=== PATIENT | female | born 1970 ===

== ENCOUNTER → 2024-06-27 | Outpatient (BNVA) | payer BC, SELFPAY | END | disposition home or self-care (01) | PROVIDERS: PCP Nurse Practitioner Family; Referring Provider Nurse Practitioner Family; Visit Provider Nurse Practitioner Family | DX: J01.90 Acute sinusitis, unspecified (principal) | CPT/HCPCS: 99213 ==

== ENCOUNTER → 2024-09-23 | Outpatient (BNVA) | payer BC, SELFPAY | END | disposition home or self-care (01) | PROVIDERS: PCP Family Medicine; Referring Provider Family Medicine; Visit Provider Nurse Practitioner Family | DX: N30.01 Acute cystitis with hematuria (principal) | CPT/HCPCS: 81001; 99214 ==

== ENCOUNTER → 2024-09-30 | Outpatient (BNVA) | payer BC, SELFPAY | END | disposition home or self-care (01) | PROVIDERS: PCP Family Medicine; Referring Provider Family Medicine; Visit Provider Nurse Practitioner Family | DX: E11.649 Type 2 diabetes mellitus with hypoglycemia without coma (principal) | CPT/HCPCS: 99212 ==

== ENCOUNTER → 2024-11-19 | Outpatient (BNVA) | payer BC, SELFPAY | END | disposition home or self-care (01) | PROVIDERS: PCP Nurse Practitioner Family; Referring Provider Nurse Practitioner Family; Visit Provider Nurse Practitioner Family | DX: L70.9 Acne, unspecified (principal); L81.1 Chloasma; H02.72 Madarosis of eyelid and periocular area; H02.723 Madarosis of right eye, unspecified eyelid and periocular area; Z23 Encounter for immunization | CPT/HCPCS: 90471; 90686; 99213 ==

== ENCOUNTER 2024-12-26 08:59 | Inpatient (IN) | payer BC, SELFPAY ==
[2024-12-26] VITALS (7 sets, daily range): BP systolic 118–165; BP diastolic 75–97; PULSE 84–112; RESP 16–19; TEMP 36.2–36.6; O2SAT 93–100; BMI 27.8
--- NOTE | 2024-12-26 | XR_ITS ---
Examinations: MRI Brain without intravenous contrast. MRA brain without intravenous contrast. MRA carotids without intravenous contrast 3-D vascular reconstructions Date and time of exam: 12/26/2022 at 3:29 p.m. Indication: Right-sided headaches with numbness in the fingers. Assess for cavernous sinus thrombosis. COMPARISON: Same day CTA head and neck and noncontrast head CT Technique: Multiple axial and sagittal images of the brain have been obtained MRA brain carotid images without contrast obtained, including 3-D postprocessing, vascular maximum intensity projection images Findings: The brain demonstrates normal morphology and signal intensity. No sellar or suprasellar mass. No supratentorial or infratentorial mass. The optic chiasm and infundibular stalk are unremarkable. No abnormalities detected in the cavernous sinuses. Prepontine and interpeduncular cisterns are not enlarged. No localized enlargement of the medulla or karina. Fourth ventricle and cerebellar tonsils are in normal in position. No evidence for intra-axial or extra-axial hemorrhage.. Fourth ventricle is midline. 7th and 8th nerve complexes exhibits symmetry. Globes are symmetrical with no retro-orbital mass. Increased white matter signal: Negative, normal signal Diffusion-weighted images demonstrate no restricted diffusion to indicate recent ischemic infarction, infection or other pathology Mass-effect upon the ventricular system is not identified. MRA carotid images normal, no stenosis, dissection or occlusion of the bilateral carotid and vertebral arteries. No apparent abnormality in the cavernous sinuses. MRA brain images normal, no evidence for significant stenosis, branch occlusion aneurysm or high flow vascular malformation. Impression: Negative brain MRI for acute intracranial abnormality or mass lesion. No apparent abnormality of the cavernous sinuses. Normal MRA head and neck.
--- NOTE | 2024-12-26 | XR_ITS ---
EXAMINATION: MR venogram brain without contrast TECHNIQUE: Multiple venographic brain MRI images without intravenous contrast, including 3D reconstructions postprocessing angiographic images Date and time: December 26, 2024, 1539 hours INDICATIONS: Sudden onset right-sided headaches and numbness in the right fingers today FINDINGS: Excellent visualization of the sagittal sinus straight sinus internal cerebral vein and transverse sinuses No findings of thrombosis in the visualized sinuses This is a relatively low detailed study with no diagnostic visualization of the paraclinoid venous sinus regions IMPRESSION: Visualized sinuses appear intact Consider brain MRI follow-up post intravenous contrast
--- NOTE | 2024-12-26 09:04 | XR_ITS ---
Examination: CTA carotids with intravenous contrast CTA brain, head with intravenous contrast. 2-D sagittal, coronal reconstructions. 3-D reconstructions. Exam date and time: 12/26/2024 at 9:17 a.m. INDICATION: Sudden onset of blurred vision and generalized headache COMPARISON: Same day noncontrast head CT. CTDI: vol (mGy) 23.2 DLP: (mGycm) 474 Technique: Multiple CTA axial brain, head carotid images post intravenous contrast injection 75 cc, [id number]. 2-D sagittal, coronal reconstructions. 3-D reconstructions, 3-D post processing including vascular maximum intensity projection images. Low dose protocols were performed. One or more of the following dose reduction techniques were used; automated exposure control, adjustment of the mA and/or KV according to patient size, use of iterative reconstruction technique. Findings: CT angiography of the head: The bilateral ICAs, ACAs, MCAs, regulatory scientist, distal vertebral arteries and basilar artery are well opacified without apparent significant stenosis, occlusion or aneurysm formation. The major dural venous sinuses are patent and well-opacified. Levy-white differentiation is maintained. No evidence of intracranial hemorrhage. No intracranial mass or evidence of mass-effect. No midline shift or herniation. No extra-axial collections. The ventricles are normal in size and morphology. No evidence of hydrocephalus. CT angiography of the neck: There is a separate origin of the left subclavian artery, left common carotid artery, and brachiocephalic artery from the arch. The common carotid arteries and cervical internal carotid arteries are normal in course and caliber. Both vertebral arteries are patent without evidence of flow-limiting stenosis or dissection. No evidence of acute arterial injury or contrast extravasation. No acute fracture or subluxation is demonstrated in the cervical spine. Right paracentral disc osteophyte complex at C5-6 results in mild central canal stenosis. No thyromegaly. Heterogeneous appearance of the thyroid, most notably at the prominent Zuckerkandl tubercle. No cervical lymphadenopathy or other masses. The visualized lung apices are clear. IMPRESSION: Negative CTA head and neck for hemodynamically significant stenosis, dissection, occlusion, aneurysm, vascular malformation or tumor. No acute intracranial abnormality.
--- NOTE | 2024-12-26 09:04 | XR_ITS ---
Examination: CT brain head without contrast. 2-D sagittal coronal reconstructions Date and time of exam: 12/26/2024 at 9:09 a.m. INDICATION: Focal neuro deficit, stroke suspected COMPARISON: Noncontrast CT brain 09/03/2007 CTDI: vol (mGy): 49.5 DLP: (mGycm): 976 Technique: Multiple CT axial sections of the brain have been obtained, 5 mm slice thickness. Contrast has not been administered. 2-D sagittal, coronal reconstructions have been obtained Low dose protocols were performed. One or more of the following dose reduction techniques were used; automated exposure control, adjustment of the mA and/or KV according to patient size, use of iterative reconstruction technique. Findings: The brain appears normal and stable compared to prior CT. No evidence for acute large vessel transcortical ischemic infarction. No intra-axial or extra-axial hemorrhage. No abnormal ventricular enlargement. No mass effect or midline shift Basal cisterns are not remarkable. Fourth ventricle is midline. Cranial vault intact. 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 Impression: Negative noncontrast head CT for acute intracranial abnormality. The brain appears normal and stable compared to prior exam. Pertinent results were discussed with Dr. Garcias via telephone on 12/26/2024 9:16 AM. 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
[2024-12-26 09:12] LABS: Basophils # (Auto) 0.1 Thou/mm3 (0.0-0.2); Basophils % (Auto) 1 % (0-2.5); Eosinophils # (Auto) 0.1 Thou/mm3 (0.0-0.5); Eosinophils % (Auto) 1 % (0-10); Hematocrit 41.3 % (36.0-46.0); Hemoglobin 14.6 g/dL (12.0-16.0); Immature Granulocytes Auto 0.02 Thou/mm3 (0.00-0.00); Lymphocytes # (Auto) 2.9 Thou/mm3 (1.0-4.8); Lymphocytes % (Auto) 52 % (10-50); Mean Corpuscular HGB Conc 35.4 g/dl (31.0-37.0); Mean Corpuscular Hemoglobin 30.2 pg (25.0-35.0); Mean Corpuscular Volume 86 fL (80-100); Monocytes # (Auto) 0.6 Thou/mm3 (0.0-0.8); Monocytes % (Auto) 10 % (0-12); Neutrophils # (Auto) 2.0 Thou/mm3 (1.8-7.7); Neutrophils % (Auto) 36 % (37-80); Nucleated Red Blood Cell # 0.00 Thou/mm3 (0.00-0.00); Nucleated Red Blood Cell % 0 /100 WBC (0); Platelet Count 317 Thou/mm3 (140-440); RDW Standard Deviation 34.8 fL (36.4-46.3); Red Blood Count 4.83 Miln/mm3 (4.00-5.20); White Blood Count 5.5 Thou/mm3 (3.6-11.0)
[2024-12-26 09:28] LABS: INR 1.0 (0.9-1.3); Partial Thromboplastin Time 23.9 Seconds (22.0-36.0); Prothrombin Time 10.3 Seconds (9.0-12.2)
[2024-12-26 09:29] LABS: B-Type Natriuretic Peptide < 20 pg/mL (0-100)
--- NOTE | 2024-12-26 09:32 | ESCONSULT_ITS ---
Tele Neuro Consultation Consultation Date 12/26/24 Laboratory-Coagulation Panel PT 10.3 Seconds (9.0-12.2) 12/26/24 09:06 INR 1.0 (0.9-1.3) 12/26/24 09:06 APTT 23.9 Seconds (22.0-36.0) 12/26/24 09:06 Consultation Narrative [facility] Patient Name:???LUCILLE MILLER Date of :???1970 Identification Number:??? Date of Service:???12/26/2024 09:02:57 Diagnosis:?H53.8 - Blurred Vision Impression: ?This is a 54 yo F w a PMHX of DM, HLD, who presents to the ED with the acute onset of DICK, blurred vision, bilateral hand numbness. She was last known to be at baseline at 8.30AM. On arrival to the ED his/her symptoms remain persistent, although improved. BP was found to be 165 systolic. This has never happened to her before. ?Physical exam is unrevealing ?Labs pending ?Imaging pending official read ?Will need to consider complicated migraine vs. CVST vs. IIH vs aseptic meningitis. ?Less likely a posterior circulation stroke. ?1.) MRI brain and orbits with and without con ?2.) MRV brain r/o CVST ?3.) If the above is unrevealing, and the symptoms persist, would treat with migraine cocktail and look for symptoms resolution: ? ?--> 10mg IV Decadron ?--> 10mg IV Reglan ?--> 15mg IV Toradol ? ?- continue 5mg IV Toradol q6hr prn DICK ?- IVF ? ?--> If DICK, does NOT break, give 1g bolus of IV Magnesium (1000mg) ?--> If DICK does NOT break give 500mg IV caffeine ?--> If DICK does NOT break, give 1g of IV Depakote (IV piggyback over 20 min) ? ?4.) If the above is unrevealing and migraine cocktail does not lead to resolution of symptoms, would consider a large-volume diagnostic and therapeutic LP Other recommendations: ? Stroke/Telemetry Floor ? Neuro Checks q6h ? Bedside Swallow Eval ? DVT Prophylaxis ? IV Fluids, Normal Saline ? Head of Bed 30 Degrees ? Euglycemia and Avoid Hyperthermia (PRN Acetaminophen) Advanced Imaging:Advanced Imaging Deferred because: Non-disabling symptoms as verified by the patient; no cortical signs so not consistent with LVO Metrics: Last Known Well: 12/26/2024 08:30:00 Dispatch Time: 12/26/2024 09:02:57 Arrival Time: 12/26/2024 08:59:00 Initial Response Time: 12/26/2024 09:09:55Symptoms: DICK, blurred vision, bilateral hand numbness. Initial patient interaction: 12/26/2024 09:14:59 NIHSS Assessment Completed: 12/26/2024 09:22:51Patient is not a candidate for Thrombolytic. Thrombolytic Medical Decision: 12/26/2024 09:22:52Patient was not deemed candidate for Thrombolytic because of following reasons: Stroke severity too mild (non-disabling) . CT Head: I personally reviewed all the CT images that were available to me and it showed: pending rads read Primary Provider Notified of Diagnostic Impression and Management Plan on: 12/26/2024 09:31:35 History of Present Illness:Patient is a 54 year old Female. Patient was brought by EMS for symptoms of DICK, blurred vision, bilateral hand numbness. This is a 54 yo F w a PMHX of DM, HLD, who presents to the ED with the acute onset of DICK, blurred vision, bilateral hand numbness. She was last known to be at baseline at XX. On arrival to the ED his/her symptoms remain persistent, although improved. BP was found to be 165 systolic. This has never happened to her before. She was taken for CTH and further evaluation. Decision on whether or not to give pharmacological thrombolysis was made based on indications, contraindications, and patient's disability status and preference. ? Medications: Anticoagulant use:??Unknown Antiplatelet use:?Unknown Reviewed EMR for current medications Allergies:? NKDA Social History: Smoking: No Alcohol Use: No Drug Use: No Family History: There is no family history of premature cerebrovascular disease pertinent to this consultation ROS : 14 Points Review of Systems was performed and was negative except mentioned in HPI. Past Surgical History: There Is No Surgical History Contributory To Today?s Visit ? Examination: BP(165/97),?Pulse(97), 1A: Level of Consciousness - Alert; keenly responsive?+ 0 1B: Ask Month and Age - Both Questions Right?+ 0 1C: Blink Eyes & Squeeze Hands - Performs Both Tasks?+ 0 2: Test Horizontal Extraocular Movements - Normal?+ 0 3: Test Visual Jackson - No Visual Loss?+ 0 4: Test Facial Palsy (Use Grimace if Obtunded) - Normal symmetry?+ 0 5A: Test Left Arm Motor Drift - No Drift for 10 Seconds?+ 0 5B: Test Right Arm Motor Drift - No Drift for 10 Seconds?+ 0 6A: Test Left Leg Motor Drift - No Drift for 5 Seconds?+ 0 6B: Test Right Leg Motor Drift - No Drift for 5 Seconds?+ 0 7: Test Limb Ataxia (FNF/Heel-Real) - No Ataxia?+ 0 8: Test Sensation - Normal; No sensory loss?+ 0 9: Test Language/Aphasia - Normal; No aphasia?+ 0 10: Test Dysarthria - Normal?+ 0 11: Test Extinction/Inattention - No abnormality?+ 0 NIHSS Score:?0 Pre-Morbid Modified [place] Scale: 0 Points = No symptoms at all Spoke with :?attending unable to be reached. front worker forwarding to center medical specialist and second time calling there was a hang up This consult was conducted in real time using interactive audio and video technology. Patient was informed of the technology being used for this visit and agreed to proceed. Patient located in hospital and provider located at home/office setting. Patient is being evaluated for possible acute neurologic impairment and high probability of imminent or life-threatening deterioration. I spent total of 35 minutes providing care to this patient, including time for face to face visit via telemedicine, review of medical records, imaging studies and discussion of findings with providers, the patient and/or family. Dr Dawson Sandoval [facility] For Inpatient follow-up with [facility] physician please call [facility] at . As we are not an outpatient service for any post hospital discharge needs please contact the hospital for assistance. If you have any questions for the [facility] physicians or need to reconsult for clinical or diagnostic changes please contact us via [facility] at . Non-radiologist review of imaging performed to assist with emergent clinical decision-making. Remote physician workstations do not possess the same resolution, calibration, or diagnostic capabilities as hospital-based radiology reading stations, and formal radiologist read is necessary. Signature :?Dawson Sandoval ?
[2024-12-26 09:35] LABS: Alanine Aminotransferase 27 U/L (10-49); Albumin, Serum 4.9 gm/dL (3.5-5.0); Albumin/Globulin Ratio 2.0 (1.2-2.2); Alcohol, Blood Medical < 3.0 mg/dL (0-10.0); Alkaline Phosphatase 83 U/L (46-116); Anion Gap 8 (7-16); Aspartate Amino Transferase 18 U/L (0-34); BUN/Creatinine Ratio 13 Ratio (12-20); Bilirubin,Total 0.5 mg/dL (0.3-1.2); Blood Urea Nitrogen 10 mg/dL (9-23); Calcium 10.1 mg/dL (8.3-10.6); Calcium (Corrected) 10.1 mg/dL (8.5-10.1); Carbon Dioxide 27.2 mMol/L (20.0-31.0); Chloride 106 mMol/L (98-107); Creatinine (Component) 0.8 mg/dL (0.6-1.3); Estimated Creatinine Clearance 69.4 mL/min (>60); Globulin 2.4 gm/dL (2.3-3.5); Glucose 163 mg/dL (74-106); Magnesium 1.8 mg/dL (1.6-2.6); Osmolality,Calculated 284 (275-295); Potassium 4.5 mMol/L (3.4-5.1); Sodium 141 mMol/L (136-145); Total Protein 7.3 gm/dL (5.7-8.2); Troponin I < 0.002 ng/mL (0.0-0.045); eGFR > 60 See Note
[2024-12-26] MEDS: SODIUM CHLORIDE 0.9% 1000 ML 1,000 ML 100 ML IV (09:42)
[2024-12-26] MEDS: ACETAMINOPHEN 325 MG TABLET 650 MG PO (09:55)
[2024-12-26 10:22] LABS: Collection Type, Urine Catheter
[2024-12-26 10:30] LABS: Bilirubin,Urine Negative (Negative); Blood,Urine Negative (Negative); Clarity,Urine Clear (Clear/Hazy); Color,Urine Lt-Yellow (Lt Yel-Yel); Glucose, Urine Negative (Negative); Ketones,Urine Negative (Negative); Leukocyte Esterase,Urine Negative (Negative); Nitrite,Urine Negative (Negative); PH,Urine 7.5 (5.0-7.0); Protein,Urine Negative (Neg - Trace); RBC,Urine 6 /hpf (0-3); Specific Gravity,Urine 1.049 (1.001-1.035); Squamous Epithelial Cell,Urine 4 /hpf (0-5); Urobilinogen,Urine Negative mg/dL (0.0-1.0); WBC,Urine 2 /hpf (0-5)
[2024-12-26 10:44] LABS: Amphetamine/Methamp Scrn,U Negative (Negative); Barbiturate Screen,Urine Negative (Negative); Benzodiazepines Screen,Urine Negative (Negative); Benzoylecgonine Screen, Ur Negative (Negative); Fentanyl Screen,Urine Negative (Negative); Opiate Screen,Urine Negative (Negative); THC Screen,Urine Negative (Negative)
[2024-12-26] MEDS: KETOROLAC INJ 30 MG/ML VIAL 15 MG IVP (12:28)
[2024-12-26] MEDS: DEXAMETHASONE SOD PHOS INJ 10 MG/ML VIAL IV (12:28)
[2024-12-26] MEDS: METOCLOPRAMIDE INJ 5 MG/ML VIAL 2 ML 10 MG IVP (12:29)
--- NOTE | 2024-12-26 13:01 | PD.EDNEURO ---
Neuro Symptoms Deficit-RME/HPI General Chief Complaint: Neuro Symptoms/Deficit Stated Complaint: SUDDEN LOSE VISION OF VISION AT 0830 Time Seen by Provider: 12/26/24 09:04 Arrival date/time: 12/26/24 08:59 Limitations: no limitations RME / HPI RME / HPI Narrative: 54 year old female with history of migraines, diabetes, hyperlipidemia presents to the ED BIBA from home for evaluation of headache, blurred vision, and hand numbness today that began suddenly while working at 08:30 AM. No unilateral weakness or loss of sensation. Patient states she woke at her usual state of health this morning. No other associated symptoms or complaints reported. Denies fevers, chills. Related Data Home Medications ?Medication ?Instructions ?Recorded ?Confirmed cetirizine 10 mg tablet (All Day 10 mg PO QDAY PRN 09/30/24 11/19/24 Allergy (cetirizine)) cholecalciferol (vitamin D3) 125 125 mcg PO QDAY 09/30/24 11/19/24 mcg (5,000 unit) capsule dulaglutide 3 mg/0.5 mL 3 mg subcut QWEEK 09/30/24 11/19/24 subcutaneous [facility] fenofibrate micronized 200 mg 200 mg PO QDAY 09/30/24 11/19/24 capsule levothyroxine 100 mcg capsule 100 mcg PO QDAY 09/30/24 11/19/24 metformin 1,000 mg tablet 1,000 mg PO BID 09/30/24 11/19/24 montelukast 10 mg tablet 10 mg PO QDAY 09/30/24 11/19/24 omega-3 acid ethyl esters 1 gram 1 cap PO BID 09/30/24 11/19/24 capsule (Lovaza) simvastatin 40 mg tablet 40 mg PO QHS 09/30/24 11/19/24 Previous Rx's ?Medication ?Instructions ?Recorded blood-glucose sensor (Clinverse G7 #1 ea 09/30/24 Sensor device) bimatoprost 0.03 % drops with 1 applic topical QDAY 30 days #5 mL 11/19/24 applicator, eyelash base (Latisse) hydroquinone 4 % topical cream 1 applic topical BID 30 days #28.4 11/19/24 grams tretinoin 0.05 % topical cream 1 applic topical QHS 30 days #45 10/01/25 (Retin-A) grams Allergies Allergy/AdvReac Type Severity Reaction Status Date / Time cephalexin (From Keflex) Allergy Severe Hives Verified 12/26/24 09:05 Sulfa (Sulfonamide Allergy Severe HIVES Verified 12/26/24 09:05 Antibiotics) Review of Systems Review of Systems Systems Reviewed: All systems reviewed, normal except as documented Past Medical History Past Medical History NEUROLOGIC: Positive Neurological Disorders and Migraine CARDIAC: Positive Cardiac Disorders and Hypercholesterolemia GASTROINTESTINAL: Positive Gastrointestinal Disorders (CHRONIC DIARRHEA AND STOMACH PAIN) REPRODUCTIVE: Positive Previous Pregnancies (2) and Uterine Prolapse ENT: Positive History of ENT Problems and Cataracts (Left eye) ENDOCRINE: Positive Endocrine Disorders, Diabetes Mellitus Type 2 and Hyperthyroidism OTHER HISTORY: Positive Autoimmune Disease, Shingles and Chicken Pox Family History FAMILY HISTORY: Positive Family Cardiac Disorders (HTN, migraine, STROKE, DC, HLD) and Family Endocrine Disorders (DMT2) Surgical History SURGICAL: Positive Eye Surgery (RT CATARACTS), Knee Sx, Hysterectomy and Tubal Ligation Social History SMOKING STATUS: Never smoker SECOND HAND EXPOSURE: No SUBSTANCE USE: does not use ALCOHOL LAST INTAKE: Unknown ED Exam General Limitations: Present no limitations General appearance: Present alert and in no apparent distress Head Head exam: Present atraumatic, normocephalic and normal inspection Eye Eye exam: Present normal appearance, PERRL, EOMI and other (visual singh to confrontation were difficulty to assess, patient states part of visual field on both sides were obscured ) ENT ENT exam: Present normal exam, normal oropharynx and mucous membranes moist Neck Neck exam: Present normal inspection, full ROM and trachea midline Chest Chest inspection: Present normal inspection and symmetric chest wall rise Respiratory Respiratory exam: Present normal lung sounds bilaterally Cardiovascular Cardiovascular exam: Present regular rate, normal rhythm and normal heart sounds Abdominal Exam Abdominal exam: Present soft and normal bowel sounds Extremities Exam Extremities exam: Present full ROM and other (Subjective finger tip numbness ) Back Exam Back exam: Present normal inspection and full ROM Neurological Exam Neurological exam: Present alert, oriented X3 and CN II-XII intact Psychiatric Psychiatric exam: Present normal affect and normal mood Skin Skin exam: Present warm, dry, intact and normal color Course Quality Measures Suspected type of Stroke: Non Acute Last known well (date): 12/26/24 Last known well (time): 08:30 Tenecteplase given: Reason(s) TPA not given: Stroke severity too mild (non-disabling) not given stroke Orders Category Date Time Status Bedside Blood Glucose NOW Care 12/26/24 09:04 Active COVID-19 Screening Questionnaire NOW Care 12/26/24 12:14 Active 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 NOW Care 12/26/24 09:04 Active Continuous Pulse Oximetry NOW Care 12/26/24 09:04 Completed Decision to Admit X1 Care 12/26/24 12:13 Completed Insert IV NOW Care 12/26/24 09:04 Active NIH Stroke Scale now Care 12/26/24 09:04 Active NPO NOW Care 12/26/24 09:04 Active Neuro Check Q4HR Care 12/26/24 09:04 Active Nurse Swallow Screen x1 Care 12/26/24 09:04 Active Consult to Neurology / Tele-Neurology Routine Cons 12/26/24 09:[address] angio stroke protocol Stat Exams 12/26/24 09:[address] stroke protocol Stat Exams 12/26/24 09:04 Completed Alcohol, Blood Medical Stat Lab 12/26/24 09:06 Completed B-Type Natriuretic Peptide Stat Lab 12/26/24 09:06 Completed CBC Stat Lab 12/26/24 09:06 Completed Comprehensive Metabolic Panel Stat Lab 12/26/24 09:06 Completed Drug Screen,Urine Stat Lab 12/26/24 10:18 Completed Magnesium Stat Lab 12/26/24 09:06 Completed Partial Thromboplastin Time Stat Lab 12/26/24 09:06 Completed Prothrombin Time with INR Stat Lab 12/26/24 09:06 Completed Troponin I Stat Lab 12/26/24 09:06 Completed Urinalysis Stat Lab 12/26/24 10:18 Completed Urine Culture Stat Lab 12/26/24 10:09 Received Acetaminophen Tab [Tylenol Tab] Med 12/26/24 09:47 Discontinued 650 mg PO X1 ONE Dexamethasone Inj [Decadron Inj] Med 12/26/24 12:15 Discontinued 10 mg IV X1 ONE Ketorolac Inj [Toradol Inj] Med 12/26/24 12:07 Discontinued 15 mg IVP X1 ONE Metoclopramide Inj [Reglan Inj] Med 12/26/24 12:07 Discontinued 10 mg IVP X1 ONE Sodium Chloride 0.9% 1000 ml [Ns] 1,000 ml Med 12/26/24 09:15 Active IV Q10H Vital Signs Vital signs: Vital Signs Temperature 97.8 F 12/26/24 09:33 Pulse Rate 97 12/26/24 09:33 Respiratory Rate 18 12/26/24 09:33 Blood Pressure 165/97 H 12/26/24 09:33 Pulse Oximetry (%) 100 12/26/24 09:33 Oxygen Delivery Method Room Air 12/26/24 09:33 Pulse ox is 100% on room air which is adequate. Neuro Symptoms / Deficit MDM Narrative MDM Narrative:: Brigida Rosen am scribing for and in the presence of Dr. Garcias. Patient data External records reviewed:: [facility] previous records and EMS form Clinical information provided by:: patient and EMS Social determinants that could affect healthcare access:: none Patient has the following chronic illnesses:: migraines, diabetes, hyperlipidemia How is presenting disease/condition affected by chronic disease/condition?: exacerbated by Evaluation data The following diagnostics were reviewed and interpreted by me:: lab results and radiology exam(s) Lab and/or radiology exams considered but not ordered:: None Interpretation Summary: Ordering Physician: Praful Garcias MD Date of Service: 12/26/24 Procedure(s): CT stroke protocol Accession Number(s): [id number] cc: Praful Garcias MD; Julian Theodore DO~ Examination: CT brain head without contrast. 2-D sagittal coronal reconstructions Date and time of exam: 12/26/2024 at 9:09 a.m. INDICATION: Focal neuro deficit, stroke suspected COMPARISON: Noncontrast CT brain 09/03/2007 CTDI: vol (mGy): 49.5 DLP: (mGycm): 976 Technique: Multiple CT axial sections of the brain have been obtained, 5 mm slice thickness. Contrast has not been administered. 2-D sagittal, coronal reconstructions have been obtained Low dose protocols were performed. One or more of the following dose reduction techniques were used; automated exposure control, adjustment of the mA and/or KV according to patient size, use of iterative reconstruction technique. Findings: The brain appears normal and stable compared to prior CT. No evidence for acute large vessel transcortical ischemic infarction. No intra-axial or extra-axial hemorrhage. No abnormal ventricular enlargement. No mass effect or midline shift Basal cisterns are not remarkable. Fourth ventricle is midline. Cranial vault intact. 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 Impression: Negative noncontrast head CT for acute intracranial abnormality. The brain appears normal and stable compared to prior exam. Pertinent results were discussed with Dr. Garcias via telephone on 12/26/2024 9:16 AM. 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 Dictated By: Julian Theodore DO Signed By: <Electronically signed by Julian Theodore DO in OV> 12/26/24 0919 Ordering Physician: Praful Garcias MD Date of Service: 12/26/24 Procedure(s): CT angio stroke protocol Accession Number(s): [id number] cc: Praful Garcias MD; Jaime Bolton MD; Julian Theodore DO~ Examination: CTA carotids with intravenous contrast CTA brain, head with intravenous contrast. 2-D sagittal, coronal reconstructions. 3-D reconstructions. Exam date and time: 12/26/2024 at 9:17 a.m. INDICATION: Sudden onset of blurred vision and generalized headache COMPARISON: Same day noncontrast head CT. CTDI: vol (mGy) 23.2 DLP: (mGycm) 474 Technique: Multiple CTA axial brain, head carotid images post intravenous contrast injection 75 cc, [id number]. 2-D sagittal, coronal reconstructions. 3-D reconstructions, 3-D post processing including vascular maximum intensity projection images. Low dose protocols were performed. One or more of the following dose reduction techniques were used; automated exposure control, adjustment of the mA and/or KV according to patient size, use of iterative reconstruction technique. Findings: CT angiography of the head: The bilateral ICAs, ACAs, MCAs, staffing specialist, distal vertebral arteries and basilar artery are well opacified without apparent significant stenosis, occlusion or aneurysm formation. The major dural venous sinuses are patent and well-opacified. Levy-white differentiation is maintained. No evidence of intracranial hemorrhage. No intracranial mass or evidence of mass-effect. No midline shift or herniation. No extra-axial collections. The ventricles are normal in size and morphology. No evidence of hydrocephalus. CT angiography of the neck: There is a separate origin of the left subclavian artery, left common carotid artery, and brachiocephalic artery from the arch. The common carotid arteries and cervical internal carotid arteries are normal in course and caliber. Both vertebral arteries are patent without evidence of flow-limiting stenosis or dissection. No evidence of acute arterial injury or contrast extravasation. No acute fracture or subluxation is demonstrated in the cervical spine. Right paracentral disc osteophyte complex at C5-6 results in mild central canal stenosis. No thyromegaly. Heterogeneous appearance of the thyroid, most notably at the prominent Zuckerkandl tubercle. No cervical lymphadenopathy or other masses. The visualized lung apices are clear. IMPRESSION: Negative CTA head and neck for hemodynamically significant stenosis, dissection, occlusion, aneurysm, vascular malformation or tumor. No acute intracranial abnormality. Dictated By: Julian Theodore DO Signed By: <Electronically signed by Julian Theodore DO in OV> 12/26/24 1007 Medications / Prescriptions Medications or Prescriptions considered but not ordered:: None Medication administrations:: Medication Administration History Al Hydrox/Mg Hydrox/Simethicone (Mg Hyd/Al Hyd/Earl (Maalox Reg) Susp 30 Ml Udc) 15 ml PO QID PRN PRN Reason: GI prophylaxis Stop: 01/25/25 15:11 Aspirin (Aspirin Ec 81 Mg Tabec) 81 mg PO QDAY JODI Stop: 01/25/25 14:59 Last Admin: 12/26/24 15:10 Dose: 81 mg Documented By: LIZZY Atorvastatin Calcium (Atorvastatin Calcium 20 Mg Tablet) 40 mg PO HS JODI Stop: 01/25/25 20:59 Dextrose (Dextrose 50%-Water Inj 50 Ml Syringe) 25 ml IV Q15MIN PRN PRN Reason: BG 50-70 responsive npo pt Stop: 01/25/25 15:05 Dextrose (Dextrose 50%-Water Inj 50 Ml Syringe) 50 ml IV Q15MIN PRN PRN Reason: BG <50 OR BG <70 & pt unresponsive Stop: 01/25/25 15:05 Glucagon (Glucagon Inj 1 Mg Vial) 1 mg IM Q15MIN PRN PRN Reason: BG <70, and no IV access Sodium Chloride (Ns) 1,000 mls @ 100 mls/hr IV Q10H JODI Stop: 01/25/25 09:14 Last Admin: 12/26/24 09:42 Dose: 100 mls/hr Documented By: EF Insulin Human Lispro (Insulin Lispro (Admelog) 1 Unit/0.01 Ml Unit) 0 unit SC ACHS JODI; Protocol Stop: 01/25/25 16:59 Labetalol HCl (Labetalol Inj 5 Mg/Ml Vial 20 Ml) 20 mg IVP Q2H PRN PRN Reason: Hypertensive Emergency Stop: 01/25/25 14:58 Ondansetron HCl (Ondansetron Inj 2 Mg/Ml Inj 2 Ml) 4 mg IVP Q6HR PRN; Protocol PRN Reason: NAUSEA OR VOMITING Stop: 01/25/25 14:58 Discontinued Medications Acetaminophen (Acetaminophen 325 Mg Tablet) 650 mg PO X1 ONE Stop: 12/26/24 09:48 Last Admin: 12/26/24 09:55 Dose: 650 mg Documented By: EF Dexamethasone Sodium Phosphate (Dexamethasone Sod Phos Inj 10 Mg/Ml Vial) 10 mg IV X1 ONE Stop: 12/26/24 12:16 Last Admin: 12/26/24 12:28 Dose: 10 mg Documented By: VG Ketorolac Tromethamine (Ketorolac Inj 30 Mg/Ml Vial) 15 mg IVP X1 ONE Stop: 12/26/24 12:08 Last Admin: 12/26/24 12:28 Dose: 15 mg Documented By: VG Ketorolac Tromethamine (Ketorolac Inj 30 Mg/Ml Vial) 5 mg IVP Q6HR PRN PRN Reason: HEADACHE Stop: 12/31/24 15:17 Metoclopramide HCl (Metoclopramide Inj 5 Mg/Ml Vial 2 Ml) 10 mg IVP X1 ONE; Protocol Stop: 12/26/24 12:08 Last Admin: 12/26/24 12:29 Dose: 10 mg Documented By: VG See above Consultations Consultation(s) initiated? (list below): Yes Consultation #1 (Physician, Specialty, Details): [id number] I spoke with teleneurologist Dr. Sandoval, states patient is not a TNK candidate. Symptoms are less likely a posterior circulation stroke and consider complicated migraine vs. CVST vs. IIH vs aseptic meningitis. Consultation #2 (Physician, Specialty, Details): I spoke with hospitalist team for admission. Diagnosis Neuro Differential Diagnosis: subarachnoid hemorrhage, cerebrovascular accident, transient cerebral ischemia and other (Migraine headaches ) Most likely diagnosis given after review of the tests above:: Headache with aura Visual changes Paresthesia Admission Indicated Admission indicated?: indicated Admission Request Was there a request for admission?: Yes Admission Attestation Admission request attestation: Discussed case with [] from Hospitalist service regarding admission. Discussed patients ED course, exam findings, labs, and radiology results. The Hospitalist [agrees,declines] to accept the patient for admission. Disposition Plan Disposition Plan: Admit Discharge Plan Plan Patient Disposition: Admit Acute Care w/in Hospital Problem List Clinical Impression: Headache, Visual changes, Paresthesia
--- NOTE | 2024-12-26 13:55 | ESHP_ITS ---
<Statement entered by Nader Lynne MD - 12/26/24 17:05> Patient seen and examined at bedside. I discussed and supervised with the human resource internship physician who took care of this patient. I personally saw and examined the patient. I agree with most of the assessment and plan. Plan of care discussed with attending Dr. Law. Nader Lynne MD PGY-2 Documentation for date of: 12/26/24 HPI History of Present Illness History of present illness: History of Present Illness: Nohemy Heller is 54 yr old Female, with PMH of T2DM and HLD, presented to the ED with sudden onset of right sided headache and numbness of the right fingers. Earlier this morning, while at work, she developed a sudden, progressively worsening, severe headache. 30 minutes prior, she experienced transient visual changes, noting that her vision mounika out with black stripes, though she could still perceive the outlines of objects. She also reported pain in the right eyeball and around the right lacrimal duct region. Additionally, she experienced numbness in her right fingers, but retained full movement and strength in the affected hand. No weakness, sensory changes, or abnormalities were noted in other parts of her body. The patient recalled having a more severe episode of headache several years ago, during which she felt she might , though she does not remember the exact diagnosis or cause. She typically experiences intermittent headaches relieved by ibuprofen or acetaminophen, however, these medications did not provide relief on this occasion. The current headache resolved following administration of ketorolac, dexamethasone, acetaminophen, and metoclopramide at the ED. Patient will be admitted for further evaluation and management of her headache. ED course: Vitals: Temperature 97.8 F, PR97, RR 18, BP 165/97, 100% O2 saturation on room air. Labs: WBC 5.5, potassium 4.5, HCO3 27.2, glucose 163, troponin <0.002, BNP<20 UA: Clear Yellow urine, Urine nitrite negative, Urine leukocytes Esterase negative, Urine RBC:6, Urine Bacteria: none Head CT w/o contrast: Negative hemorrhage Head/Neck CTA (12/26/2024): Negative stenosis, dissection, occlusion, aneurysm, vascular malformation or tumor. No acute intracranial abnormality. In ED, patient received Metoclopramide 10mg IV x1, Dexamethasone 10mg IV x1, Ketorolac 15mg IV x1, Acetaminophen 650mg PO x1, IV bolus NS 1L x1 Medical history: As stated above Surgical history: Right knee surgery with screws, hysterectomy, tubal ligation Allergies: Sulfa allergy causing whole body rash, Keflex causing skin infection Medications: Pending official med rec Family history: HLD, Heart illnesses in uncle, aunt and brother Social history: Denies smoking cigarettes, drinking alcohol or using other illicit drugs Review of Systems Review of Systems Narrative Review of Systems: All 12 systems assessed and the patient denies unless otherwise stated in HPI Exam Vital Signs Temp Pulse Resp BP Pulse Ox O2 Del Method 97.8 F 89 18 140/92 H 98 Room Air 12/26/24 13:19 12/26/24 13:19 12/26/24 13:19 12/26/24 13:19 12/26/24 13:19 12/26/24 13:19 Narrative Exam General: No acute distress, well nourished, AAO x3 Eye: PERRL, EOMI, normal conjunctiva, no scleral icterus, Photophoia. HENT: Normocephalic, atraumatic, hearing intact to conversation at normal volume, moist oral mucosa Neck: Supple, non-tender, no JVD, no lymphadenopathy Lungs: Non-labored respirations, symmetric chest rise, Clear to auscultate bilaterally, No wheezing, rhonchi, crackles Heart: Peripheral pulses intact bilaterally, Regular Rate and Rhythm. Abdomen: Soft, non-tender, non-distended, no palpable masses Musculoskeletal: Normal range of motion and strength, No cyanosis or edema, No visible joint swelling Skin: Skin is warm, dry, no rashes or lesions. Psychiatric: Cooperative, appropriate mood and affect, Awake and alert, not agitated Neuro: Cranial nerves II-XII grossly intact. Strength 5/5 throughout. Sensations intact to light touch. Results: Labs 12/26/24 09:06 12/26/24 09:06 Labs: Short CBC 12/26/24 Range/Units 09:06 WBC 5.5 (3.6-11.0) Thou/mm3 Hgb 14.6 (12.0-16.0) g/dL Hct 41.3 (36.0-46.0) % Plt Count 317 (140-440) Thou/mm3 BMP 12/26/24 09:06 Sodium 141 Potassium 4.5 Chloride 106 Carbon Dioxide 27.2 BUN 10 Creatinine 0.8 Glucose 163 H Calcium 10.1 Cardiac Enzymes 12/26/24 Range/Units 09:06 Troponin I < 0.002 (0.0-0.045) ng/mL Liver Function 12/26/24 Range/Units 09:06 Total Bilirubin 0.5 (0.3-1.2) mg/dL AST 18 (0-34) U/L ALT 27 (10-49) U/L Alkaline Phosphatase 83 (46-116) U/L Albumin 4.9 (3.5-5.0) gm/dL Urine 12/26/24 Range/Units 10:18 Urine Color Lt-Yellow (Lt Yel-Yel) Urine Clarity Clear (Clear/Hazy) Urine pH 7.5 H (5.0-7.0) Ur Specific [place] 1.049 H (1.001-1.035) Urine Protein Negative (Neg - Trace) Urine Glucose (UA) Negative (Negative) Quality Measures Quality Measures VTE prophylaxis Medications Home Medications and Allergies Home Medications ?Medication ?Instructions ?Recorded ?Confirmed ?Type cetirizine 10 mg tablet (All Day 10 mg PO QDAY PRN all ergy symptoms 09/30/24 12/26/24 History Allergy (cetirizine)) cholecalciferol (vitamin D3) 125 125 mcg PO QDAY 09/3012/26/24 History mcg (5,000 unit) capsule dulaglutide 3 mg/0.5 mL 4.5 mg subcut QWEEK 09/30/24 12/26/24 History subcutaneous pen injector (Trulicity) fenofibrate micronized 200 mg 200 mg PO QDAY 09/30/24 12/26/24 History capsule levothyroxine 100 mcg capsule 100 mcg PO QDAY 09/30/24 12/26/24 History metformin 1,000 mg tablet 1,000 mg PO BID 09/30/2409/12 History montelukast 10 mg tablet 10 mg PO QDAY 09/30/2412/26 History omega-3 acid ethyl esters 1 gram 1 cap PO BID 09/30/24 12/26/24 History capsule (Lovaza) simvastatin 40 mg tablet 40 mg PO DAILY 09/30/2409/12 History ascorbic acid (vitamin C) 1,000 mg 1,000 mg PO QDAY 12/26/24 History tablet (C-1000) estradiol 0.025 mg/24 hr weekly 0.025 mg topical .week ly 12/26/24 12/26/24 History transdermal patch stzaekyb-wyk-sxen-FA-Ca carb-vit K 1 tab PO HS 5 12/26/24 History 18 mg iron-400 mcg-500 mg tablet Allergies Allergy/AdvReac Type Severity Reaction Status Date / Time cephalexin (From Keflex) Allergy Severe Hives Verified 12/26/24 09:05 Sulfa (Sulfonamide Allergy Severe HIVES Verified 12/26/24 09:05 Antibiotics) Visit Medications Sodium Chloride (Ns) 1,000 mls @ 100 mls/hr IV Q10H JODI Stop: 01/25/25 09:14 Last Admin: 12/26/24 09:42 Dose: 100 mls/hr Discontinued Medications Acetaminophen (Acetaminophen 325 Mg Tablet) 650 mg PO X1 ONE Stop: 12/26/24 09:48 Last Admin: 12/26/24 09:55 Dose: 650 mg Dexamethasone Sodium Phosphate (Dexamethasone Sod Phos Inj 10 Mg/Ml Vial) 10 mg IV X1 ONE Stop: 12/26/24 12:16 Last Admin: 12/26/24 12:28 Dose: 10 mg Ketorolac Tromethamine (Ketorolac Inj 30 Mg/Ml Vial) 15 mg IVP X1 ONE Stop: 12/26/24 12:08 Last Admin: 12/26/24 12:28 Dose: 15 mg Metoclopramide HCl (Metoclopramide Inj 5 Mg/Ml Vial 2 Ml) 10 mg IVP X1 ONE; Protocol Stop: 12/26/24 12:08 Last Admin: 12/26/24 12:29 Dose: 10 mg Assessment & Plan Plan Nohemy Heller is 54 yr old Female, with PMH of T2DM and HLD, presented to the ED with sudden onset of right sided headache and numbness of the right fingers. Patient will be admitted for further evaluation and management of her headache. #CVA vs Complex Migraine -Ddx:. Cavernous Venous Thrombosis, Idiopathic Intracrainal HTN, Menginit -Patient's headache resolved after receiving Metoclopramide 10mg IV x1, Dexamethasone 10mg IV x1, Ketorolac 15mg IV x1, Acetaminophen 650mg PO x1 at the ED -Troponin <0.002, BNP<20 -Head CT w/o contrast (12/26/2024): Negative hemorrhage -Head/Neck CTA (12/26/2024): Negative stenosis, dissection, occlusion, aneurysm, vascular malformation or tumor. No acute intracranial abnormality. Plan: -ASA 81mg daily -Atorvastatin 40mg PO daily -Neuro Check q6hr -Head of bed 30 degrees -Aspiration precautions -Labetalol 10 mg IV q2h prn if BP>220/105 -Zofran 4mg IV q6hr prn for Nausea or Vomiting. -Brain MRI with MRA w/o contrast pending -Brain MRV w/o contrast pending -ECHO with BUBBLE study pending -Bedside swallow eval -TSH, A1c, Lipid panel pending -Consulted physical therapy, and speech. -Neurology consulted, Dr. Cohen, thank you for recommendation #Cluster headache -Patient's headache resolved after receiving Metoclopramide 10mg IV x1, Dexamethasone 10mg IV x1, Ketorolac 15mg IV x1, Acetaminophen 650mg PO x1 at the ED -Will continue to monitor Plan: -Acetaminophen 325 mg po q4hr prn for headache #Type 2 Diabetes -HbA1c: HbA1c: 6.3 on 06/30/2022. 9.8 on 01/22/2020 Plan: -Sliding scale insulin -Follow-up on morning A1c -Med rec pending #Hx of HLD -Atorvastatin 40mg PO daily Disposition: Tele Neuro Diet: Low Carb consistent Diet GI prophylaxis:Maalox DVT prophylaxis: SCD Code:FULL Assessment and plan discussed with my attending physician Dr. Law and Dr. Maged Wall (PGY-1) - Internal medicine resident Attending Provider Attestation/Addendum I or my resident physicians have discussed care with the ED physician and I have made the decision to admit. I have discussed and was present for the essential components of the history, physical examination, diagnosis, and treatment plan with the resident. I agree with the patient's care as documented by the resident and amended herein by me. Marky Law DO. Although this document has been carefully reviewed, there may still be some phonetic and other typographical errors. These errors are purely grammatical due to imperfections in the software program and should not be construed in any way to compromise the substance of the patient's medical care during this visit. Patient seen and evaluated in the ED. In short, 54-year-old female with significant past medical history of hypothyroidism, hyperlipidemia, type 2 diabetes and recently broken tooth, presented to the ED with complaints of acute onset right-sided headache which was more focused behind her right eye, associated bilateral finger numbness and vision loss which occurred at approximately 0830 this morning. She did experience as transient visual changes prior to the event and also noted that she normally has floaters in her eye however this was more pronounced in a dark field which was transient throughout her vision in her right eye. She did not endorse any motor weakness or any other neurological symptoms in any other part of her body. She took Tylenol which did not help. Upon arrival to the ED, she stated that the pain around her eye did improve and her vision has improved and normalized prior to receiving the migraine cocktail which did improve the pain. In the ED, she did receive ketorolac, dexamethasone and Reglan. Her symptoms were nearly resolved other vital signs were stable, labs were largely unremarkable with exception of her triglycerides which were 322, LDL was 75, total cholesterol 175, HDL 36. UA was negative. U tox negative. 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 Brain MRI and MRA was negative for any acute intracranial pathology, mass or lesions. A venogram was also performed per neurology recommendations, results pending. At this time patient will be admitted to acute telemetry under observation for acute stroke versus complicated migraine. Other differentials include cavernous venous sinus thrombosis, possible idiopathic intracranial hypertension or meningitis however those are much lower on the differential considering her symptoms nearly resolved after the migraine cocktail which is what I am leaning towards at this time. Her last A1c per chart was 6.3 in 2022, repeat pending, TSH also pending. We will have teleneurology round on the patient tomorrow if they are available, likely discharge tomorrow on 12/27 pending continued improvement.
[2024-12-26] MEDS: ASPIRIN EC 81 MG TABEC PO (15:10)
[2024-12-26] MEDS: ENOXAPARIN SOD INJ 40 MG/0.4 ML SYRINGE SC (16:58)
[2024-12-26 17:03] LABS: Cardiac Risk Estimate 4.9 RATIO (3.7-5.6); Cholesterol 175 mg/dL (132-200); HDL Cholesterol 36 mg/dL (40-60); LDL Cholesterol,Calculated 75 mg/dL (0-130); Triglycerides 322 mg/dL (30-150)
[2024-12-26] MEDS: INSULIN LISPRO (AdmeLOG) 1 UNIT/0.01 ML UNIT SC ×2 (17:38→20:44)
[2024-12-26] MEDS: ATORVASTATIN CALCIUM 20 MG TABLET 40 MG PO (20:44)
[2024-12-27] VITALS (8 sets, daily range): BP systolic 115–143; BP diastolic 74–90; PULSE 75–97; RESP 15–17; TEMP 36.3–37; O2SAT 92–98
[2024-12-27 06:47] LABS: Basophils # (Auto) 0.0 Thou/mm3 (0.0-0.2); Basophils % (Auto) 0 % (0-2.5); Eosinophils # (Auto) 0.0 Thou/mm3 (0.0-0.5); Eosinophils % (Auto) 0 % (0-10); Hematocrit 35.9 % (36.0-46.0); Hemoglobin 13.1 g/dL (12.0-16.0); Immature Granulocytes Auto 0.05 Thou/mm3 (0.00-0.00); Lymphocytes # (Auto) 2.7 Thou/mm3 (1.0-4.8); Lymphocytes % (Auto) 26 % (10-50); Mean Corpuscular HGB Conc 36.5 g/dl (31.0-37.0); Mean Corpuscular Hemoglobin 30.8 pg (25.0-35.0); Mean Corpuscular Volume 84 fL (80-100); Monocytes # (Auto) 0.7 Thou/mm3 (0.0-0.8); Monocytes % (Auto) 7 % (0-12); Neutrophils # (Auto) 7.0 Thou/mm3 (1.8-7.7); Neutrophils % (Auto) 66 % (37-80); Nucleated Red Blood Cell # 0.00 Thou/mm3 (0.00-0.00); Nucleated Red Blood Cell % 0 /100 WBC (0); Platelet Count 305 Thou/mm3 (140-440); RDW Standard Deviation 33.8 fL (36.4-46.3); Red Blood Count 4.26 Miln/mm3 (4.00-5.20); White Blood Count 10.6 Thou/mm3 (3.6-11.0)
[2024-12-27 07:22] LABS: Alanine Aminotransferase 23 U/L (10-49); Albumin, Serum 4.4 gm/dL (3.5-5.0); Albumin/Globulin Ratio 2.4 (1.2-2.2); Alkaline Phosphatase 87 U/L (46-116); Anion Gap 10 (7-16); Aspartate Amino Transferase 18 U/L (0-34); BUN/Creatinine Ratio 14 Ratio (12-20); Bilirubin,Total 0.3 mg/dL (0.3-1.2); Blood Urea Nitrogen 11 mg/dL (9-23); Calcium 9.5 mg/dL (8.3-10.6); Calcium (Corrected) 9.5 mg/dL (8.5-10.1); Carbon Dioxide 24.1 mMol/L (20.0-31.0); Chloride 107 mMol/L (98-107); Creatinine (Component) 0.8 mg/dL (0.6-1.3); Estimated Creatinine Clearance 69.7 mL/min (>60); Globulin 1.8 gm/dL (2.3-3.5); Glucose 177 mg/dL (74-106); Magnesium 1.8 mg/dL (1.6-2.6); Osmolality,Calculated 284 (275-295); Phosphorous 3.4 mg/dL (2.4-5.1); Potassium 4.5 mMol/L (3.4-5.1); Sodium 141 mMol/L (136-145); Thyroid Stimulating Hormone 0.03 uIU/mL (0.55-4.78); Total Protein 6.2 gm/dL (5.7-8.2); eGFR > 60 See Note
[2024-12-27 07:34] LABS: Glucose Estimated Average 169 mg/dL (80-131); Hemoglobin A1C 7.5 % Hgb (4.8-6.0)
[2024-12-27 08:30] LABS: Free T3 2.3 pg/mL (2.3-4.2); Free T4 (Free Thyroxine) 1.81 ng/dL (0.89-1.76)
--- NOTE | 2024-12-27 08:41 | PD.RESPRO ---
Documentation for date of: 12/27/24 Exam Vital Signs Temp Pulse Resp BP Pulse Ox O2 Del Method 97.3 F 92 16 115/74 92 L Room Air 12/27/24 04:00 12/27/24 04:00 12/27/24 04:00 12/27/24 04:00 12/27/24 04:00 12/27/24 04:00 Objective Labs 12/27/24 06:22 12/27/24 06:22 Labs: Laboratory Results - last 24 hr 12/26/24 12/26/24 12/26/24 09:06 10:18 16:20 WBC 5.5 RBC 4.83 Hgb 14.6 Hct 41.3 MCV 86 MCH 30.2 MCHC 35.4 RDW Std Deviation 34.8 L Plt Count 317 Neut % (Auto) 36 L Lymph % (Auto) 52 H [place] % (Auto) 10 Eos % (Auto) 1 Baso % (Auto) 1 Neut # (Auto) 2.0 Lymph # (Auto) 2.9 [place] # (Auto) 0.6 Eos # (Auto) 0.1 Baso # (Auto) 0.1 Immature Gran # (Auto) 0.02 H Absolute Nucleated RBC 0.00 Immature Gran % 0 Nucleated RBC % 0 PT 10.3 INR 1.0 APTT 23.9 Sodium 141 Potassium 4.5 Chloride 106 Carbon Dioxide 27.2 Anion Gap 8 BUN 10 Creatinine 0.8 Estim Creat Clear Calc 69.4 eGFR > 60 BUN/Creatinine Ratio [address] Glu mg/dL Hemoglobin A1c Calculated Osmolality 284 Calcium 10.1 Corrected Calcium 10.1 Phosphorus Magnesium 1.8 Total Bilirubin 0.5 AST 18 ALT 27 Alkaline Phosphatase 83 Troponin I < 0.002 B-Natriuretic Peptide < 20 Total Protein 7.3 Albumin 4.9 Globulin 2.4 Albumin/Globulin Ratio 2.0 Triglycerides 322 H Cholesterol 175 LDL Cholesterol, Calc 75 HDL Cholesterol 36 L Cholesterol/HDL Ratio 4.9 TSH Free T4 Free T3 pg/dL Ur Collection Type Catheter Urine Color Lt-Yellow Urine Clarity Clear Urine pH 7.5 H Ur Specific [place] 1.049 H Urine Protein Negative Urine Glucose (UA) Negative Urine Ketones Negative Urine Blood Negative Urine Nitrite Negative Urine Bilirubin Negative Urine Urobilinogen (Auto) Negative Ur Leukocyte Esterase Negative Urine RBC 6 H Urine WBC 2 Ur Squamous Epith Cells 4 Urine Bacteria None Urine Opiates Screen Negative Urine Fentanyl Screen Negative Ur Barbiturates Screen Negative U Amphetamin/Meth Scrn Negative U Benzodiazepines Scrn Negative U Cocaine Metab Screen Negative U Marijuana (THC) Screen Negative Ethyl Alcohol < 3.0 12/27/24 06:22 WBC 10.6 D RBC 4.26 Hgb 13.1 Hct 35.9 L MCV 84 MCH 30.8 MCHC 36.5 RDW Std Deviation 33.8 L Plt Count 305 Neut % (Auto) 66 Lymph % (Auto) 26 [place] % (Auto) 7 Eos % (Auto) 0 Baso % (Auto) 0 Neut # (Auto) 7.0 Lymph # (Auto) 2.7 [place] # (Auto) 0.7 Eos # (Auto) 0.0 Baso # (Auto) 0.0 Immature Gran # (Auto) 0.05 H Absolute Nucleated RBC 0.00 Immature Gran % 1 H Nucleated RBC % 0 PT INR APTT Sodium 141 Potassium 4.5 Chloride 107 Carbon Dioxide 24.1 Anion Gap 10 BUN 11 Creatinine 0.8 Estim Creat Clear Calc 69.7 eGFR > 60 BUN/Creatinine Ratio 14 [address]ucose [address] Glu mg/dL 169 H Hemoglobin A1c 7.5 H Calculated Osmolality 284 Calcium 9.5 Corrected Calcium 9.5 Phosphorus 3.4 Magnesium 1.8 Total Bilirubin 0.3 AST 18 ALT 23 Alkaline Phosphatase 87 Troponin I B-Natriuretic Peptide Total Protein 6.2 Albumin 4.4 D Globulin 1.8 L Albumin/Globulin Ratio 2.4 H Triglycerides Cholesterol LDL Cholesterol, Calc HDL Cholesterol Cholesterol/HDL Ratio TSH 0.03 L* Free T4 1.81 H Free T3 pg/dL 2.3 Ur Collection Type Urine Color Urine Clarity Urine pH Ur Specific [place] Urine Protein Urine Glucose (UA) Urine Ketones Urine Blood Urine Nitrite Urine Bilirubin Urine Urobilinogen (Auto) Ur Leukocyte Esterase Urine RBC Urine WBC Ur Squamous Epith Cells Urine Bacteria Urine Opiates Screen Urine Fentanyl Screen Ur Barbiturates Screen U Amphetamin/Meth Scrn U Benzodiazepines Scrn U Cocaine Metab Screen U Marijuana (THC) Screen Ethyl Alcohol Quality Measures Quality Measures stroke Suspected type of Stroke: Non Acute Last known well (date): 12/26/24 Last known well (time): 08:30 Tenecteplase given: Reason(s) Tenecteplase not given: Stroke severity too mild (non-disabling) not given Assessment & Plan Assessment Current Active Medications: Generic Name Dose Route Start Last Admin Trade Name Freq PRN Reason Stop Dose Admin Acetaminophen 325 mg 12/26/24 15:20 Acetaminophen 325 Mg Tablet PO 01/25/25 15:19 Q4HR PRN HEADACHE Al Hydrox/Mg Hydrox/Simethicone 15 ml 12/26/24 15:12 Mg Hyd/Al Hyd/Earl (Maalox Reg) Susp 30 Ml Udc PO 01/25/25 15:11 QID PRN GI prophylaxis Aspirin 81 mg 12/26/24 15:00 12/26/24 15:10 Aspirin Ec 81 Mg Tabec PO 01/25/25 14:59 81 mg QDAY JODI Administration Atorvastatin Calcium 40 mg 12/26/24 21:00 12/26/24 20:44 Atorvastatin Calcium 20 Mg Tablet PO 01/25/25 20:59 40 mg HS JODI Administration Dextrose 25 ml 12/26/24 15:06 Dextrose 50%-Water Inj 50 Ml Syringe IV 01/25/25 15:05 Q15MIN PRN BG 50-70 responsive npo pt Dextrose 50 ml 12/26/24 15:06 Dextrose 50%-Water Inj 50 Ml Syringe IV 01/25/25 15:05 Q15MIN PRN BG <50 OR BG <70 & pt unresponsive Enoxaparin Sodium 40 mg 12/26/24 16:00 12/26/24 16:58 Enoxaparin Sod Inj 40 Mg/0.4 Ml Syringe SC 01/09/25 15:59 40 mg QDAY JODI Administration Glucagon 1 mg 12/26/24 15:06 Glucagon Inj 1 Mg Vial IM Q15MIN PRN BG <70, and no IV access Sodium Chloride 1,000 mls @ 100 mls/hr 12/26/24 09:15 12/27/24 06:00 Ns IV 01/25/25 09:14 Not Given Q10H JODI Insulin Human Lispro 0 unit 12/26/24 17:00 12/27/24 07:40 Insulin Lispro (Admelog) 1 Unit/0.01 Ml Unit SC 01/25/25 16:59 Not Given ACHS [facility] Protocol Ketorolac Tromethamine 15 mg 12/26/24 15:53 Ketorolac Inj 30 Mg/Ml Vial IVP 12/31/24 15:52 Q6HR PRN HEADACHE Ondansetron HCl 4 mg 12/26/24 14:59 Ondansetron Inj 2 Mg/Ml Inj 2 Ml IVP 01/25/25 14:58 Q6HR PRN NAUSEA OR VOMITING Protocol
[2024-12-27] MEDS: ASPIRIN EC 81 MG TABEC PO (08:46)
[2024-12-27] MEDS: ENOXAPARIN SOD INJ 40 MG/0.4 ML SYRINGE SC (08:46)
[2024-12-27] MEDS: ACETAMINOPHEN 325 MG TABLET PO (08:50)
--- NOTE | 2024-12-27 10:58 | PC.PT ---
12/27/2024 PT eval performed - no add'l PT recommended
--- NOTE | 2024-12-27 11:33 | PC.SS ---
53YO Female, reason for visit: MIGRAINE, CVA R/O Naturopathic Physician met patient at bedside to complete initial assessment. Role and purpose of today's contact was explained. Patient confirmed her demographic information. Patient stated her spouse Joshua Rivas [phone] is her medical decisionmaker. Patient stated she is independent with ADL completion and ambulates with a cane at all times. PHARMACY: [facility]. PCP: Jaime Bolton. Patient requested to return home when medically clear. NEXT OF KIN: Spouse Joshua Rivas DISCHARGE PLAN: Home, spouse to transport.
--- NOTE | 2024-12-27 16:27 | PD.TNEUROPRO ---
Tele Neuro Progress Note Progress Note Date 12/27/24 [facility] TeleNeurology Consult Services Routine Consult Follow-Up Patient Name:???LUCILLE MILLER Date of :???1970 Identification Number:??? Date of Service:???12/27/2024 15:43:03 Diagnosis?H53.8 - Blurred Vision ?G44.59 - Other complicated headache syndrome Impression 12/26/24: This is a 54 yo F w a PMHX of DM, HLD, who presents to the ED with the acute onset of DICK, blurred vision, bilateral hand numbness. She was last known to be at baseline at 8.30AM. On arrival to the ED his/her symptoms remain persistent, although improved. BP was found to be 165 systolic. This has never happened to her before. 12/27/24: Most likely migrainous headache- visual aura and paresthesias preceding headache - she does have h/o complicated migraine with facial droop in the past, 1-2 times a year - h/o what sounds like a thunderclap headache without focal features many years ago - she was just started on an estrogen patch a month ago which can precipitate migraine in susceptible individuals recommend to d/c estrogen patch aspirin 81mg daily magnesium glycinate 400mg po BID (OTC formulation) magnesium L-threonate 1200mg po qhs (OTC formulation/magtein) screen/treat for OLGA upon discharge consider 30 day holter upon discharge follow up with her primary doctor regarding estrogen supplementation- can consider a local cream if needed or combine it with progresterone for more protection however in a patient with h/o complex headaches estrogen seems to increase risk of stroke d/w patient in detail, signing off- please call with questions/concerns Our recommendations are outlined below Disposition :Neurology will sign off. Reconsult if NeededOutpatient Neurology follow up in 3-6 weeks Subjective feeling all better- had one thunderclap headache back many years ago, states sometimes gets migraines with facial droop but only 1-2 times a year; in between that has regular headaches ; has been on estradiol patch for one month- states she forgot to tell anyone that; no antiplatelets; no progesterone with it; this episode had her vision go out when in the center of her vision while on the computer then the headache started after- now resolved Imaging MRI brain no acute stroke CTA H/N negative ? Examination 1A: Level of Consciousness - Alert; keenly responsive?+ 0 1B: Ask Month and Age - Both Questions Right?+ 0 1C: Blink Eyes & Squeeze Hands - Performs Both Tasks?+ 0 2: Test Horizontal Extraocular Movements - Normal?+ 0 3: Test Visual [place] - No Visual Loss?+ 0 4: Test Facial Palsy (Use Grimace if Obtunded) - Normal symmetry?+ 0 5A: Test Left Arm Motor Drift - No Drift for 10 Seconds?+ 0 5B: Test Right Arm Motor Drift - No Drift for 10 Seconds?+ 0 6A: Test Left Leg Motor Drift - No Drift for 5 Seconds?+ 0 6B: Test Right Leg Motor Drift - No Drift for 5 Seconds?+ 0 7: Test Limb Ataxia (FNF/Heel-Real) - No Ataxia?+ 0 8: Test Sensation - Normal; No sensory loss?+ 0 9: Test Language/Aphasia - Normal; No aphasia?+ 0 10: Test Dysarthria - Normal?+ 0 11: Test Extinction/Inattention - No abnormality?+ 0 NIHSS Score:?0 ? This consult was conducted in real time using interactive audio and video technology. Patient was informed of the technology being used for this visit and agreed to proceed. Patient located in hospital and provider located at home/office setting. Telehealth Neurology consultation was provided. I spent 35 minutes providing telehealth care. This includes time spent for face to face visit via telemedicine, review of medical records, imaging studies and discussion of findings with providers, the patient and/or family. Dr Tete Jones [facility] For Inpatient follow-up with [facility] physician please call [facility] at . As we are not an outpatient service for any post hospital discharge needs please contact the hospital for assistance. If you have any questions for the [facility] physicians or need to reconsult for clinical or diagnostic changes please contact us via [facility] at Signature :?Tetemimi Jones ? Most Recent Vital Signs Last Vital Signs Temp 97.8 F 12/27/24 11:30 Pulse 96 12/27/24 16:00 Resp 15 12/27/24 11:30 BP 143/90 H 12/27/24 11:30 Pulse Ox 98 12/27/24 11:30 O2 Del Method Room Air 12/27/24 11:30 Laboratory-Coagulation Panel PT 10.3 Seconds (9.0-12.2) 12/26/24 09:06 INR 1.0 (0.9-1.3) 12/26/24 09:06 APTT 23.9 Seconds (22.0-36.0) 12/26/24 09:06
--- NOTE | 2024-12-27 16:43 | ESDS_ITS ---
<Statement entered by Elijah Cruz MD - 12/27/24 17:38> Patient was seen and examined by me personally. I have reviewed the below documentation by the team resident and agree with its findings. Discharge plan was discussed with the attending, DO Elijah Cobos MD Internal Medicine, PGY-2 Planned Discharge Date 12/27/24 DS: Providers Provider Date of admission: 12/26/24 12:17 Primary care physician: Jaime Bolton MD Admitting Provider: Sancho Law DO Attending Provider on Admission: Snacho Law DO Consults: 12/26/24 09:04 Consult to Neurology / Tele-Neurology Routine Comment: Consulting Provider: [facility] 12/26/24 14:56 Consult to Neurology / Tele-Neurology Routine Comment: Consulting Provider: Conrad Cohen 12/26/24 14:58 Referral Physical Therapy Routine Comment: Physician Instructions: Referral Speech Therapy Routine Comment: Attending Provider on DC: Twyla Wall DO Discharging Provider: Twyla Wall DO DS: Diagnosis Problem List Completed Was Problem List Reviewed/Reconciled?: Yes Hospital Course Hospital Course Hospital course: History of Present Illness: Nohemy Heller is 54 yr old Female, with PMH of T2DM and HLD, presented to the ED with sudden onset of right sided headache and numbness of the right fingers. Patient was admitted for further evaluation and management of her headache. Head CT w/o contrast, Head/Neck CTA, rain MRI with MRA w/o contrast and Brain MR Venogram w/o contrast was all negative. Per neurology, patient most likely has Migraine with visual aura and parethesias preceding headache. The estrogen patch that she started a month ago was suspected to be the cause patient's headache. ED course: Vitals: Temperature 97.8 F, PR97, RR 18, BP 165/97, 100% O2 saturation on room air. Labs: WBC 5.5, potassium 4.5, HCO3 27.2, glucose 163, troponin <0.002, BNP<20 UA: Clear Yellow urine, Urine nitrite negative, Urine leukocytes Esterase negative, Urine RBC:6, Urine Bacteria: none Head CT w/o contrast: Negative hemorrhage Head/Neck CTA (12/26/2024): Negative stenosis, dissection, occlusion, aneurysm, vascular malformation or tumor. No acute intracranial abnormality. In ED, patient received Metoclopramide 10mg IV x1, Dexamethasone 10mg IV x1, Ketorolac 15mg IV x1, Acetaminophen 650mg PO x1, IV bolus NS 1L x1 Hospital Course: Upon admission, patient received ASA 81mg daily, Atorvastatin 40mg PO daily. Brain MRI with MRA w/o contrast and Brain MR Venogram w/o contrast was negative. HbA1c was 7.5, TSH 0.03, and Free T3 was 1.81. Per neurology, patient most likely has Migraine with visual aura and parethesias preceding headache. The estrogen patch that she started a month ago was suspected to be the cause patient's headache. On 12/27, patient was asymptomatic, vitals and labs were stable. Patient was discharged. #Complex Migraine vs thunderclap headache, complicated headache #CVA ruled out #Type 2 Diabetes, A1c 7.5 #Hypothyroidism, by history #Elevated free T4, low TSH, iatrogenic hyperthyroidism #Hypertriglyceridemia #Mixed hyperlipidemia Instructions: You were admitted to the hospital for headache and other neurological symptoms, MRI of your brain was negative for any stroke, venogram of brain was negative for any thrombus no bleeding was noted on your CT head. Your most likely diagnosis is complicated headaches, we recommend that you discontinue estradiol patches Continue daily aspirin daily 81mg per neurology recommendations We have decreased the dose of your levothyroxine from 100 mcg to 75 mcg, recheck your thyroid panel outpatient in the next 3 months and adjust your dose. We recommend following up outpatient with your primary care physician to optimize control of blood pressure, diabetes mellitus and hypercholesterolemia. Recommend OTC magnesium glycinate 400mg po BID (OTC formulation) and magnesium L-threonate 1200mg po qhs (OTC formulation). Maintain adequate hydration, low carbohydrate diet recommended. Follow-up with your primary care physician within 1 week. Obtain referral for neurologist outpatient. Recommend O/P Sleep Study and Holter monitoring. Return to the emergency department if your symptoms worsen. Assessment and plan discussed with my attending physician Dr. Law and Dr. Cruz (PGY-2) Dr. Wall (PGY-1) - Internal medicine resident Status at Discharge Overall status at discharge: patient is progressing back to baseline Time Spent with Patient Time attestation: Total time spent providing and/or coordinating discharge services: Time spent: Greater than 30 minutes Exam Vital Signs Temp Pulse Resp BP Pulse Ox O2 Del Method 98.6 F 96 16 135/80 H 94 L Room Air 12/27/24 15:50 12/27/24 16:00 12/27/24 15:50 12/27/24 15:50 12/27/24 15:50 12/27/24 15:50 Narrative Exam General: No acute distress, well nourished, AAO x3 Eye: PERRL, EOMI, normal conjunctiva, no scleral icterus HENT: Normocephalic, atraumatic, hearing intact to conversation at normal volume, moist oral mucosa Neck: Supple, non-tender, no JVD, no lymphadenopathy Lungs: Non-labored respirations, symmetric chest rise, Clear to auscultate bilaterally, No wheezing, rhonchi, crackles Heart: Peripheral pulses intact bilaterally, Regular Rate and Rhythm. Abdomen: Soft, non-tender, non-distended, no palpable masses Musculoskeletal: Normal range of motion and strength, No cyanosis or edema, No visible joint swelling Skin: Skin is warm, dry, no rashes or lesions. Psychiatric: Cooperative, appropriate mood and affect, Awake and alert, not agitated Neuro: Cranial nerves II-XII grossly intact. Strength 5/5 throughout. Sensations intact to light touch. Discharge Plan Plan Patient Disposition: HOME (Self Care) Patient condition on transfer: Stable Care Plan Goals: You were admitted to the hospital for headache and other neurological symptoms, MRI of your brain was negative for any stroke, venogram of brain was negative for any thrombus no bleeding was noted on your CT head. Your most likely diagnosis is complicated headaches, we recommend that you discontinue estradiol patches Continue daily aspirin daily 81mg per neurology recommendations We have decreased the dose of your levothyroxine from 100 mcg to 75 mcg, recheck your thyroid panel outpatient in the next 3 months and adjust your dose. We recommend following up outpatient with your primary care physician to optimize control of blood pressure, diabetes mellitus and hypercholesterolemia. Recommend OTC magnesium glycinate 400mg po BID (OTC formulation) and magnesium L-threonate 1200mg po qhs (OTC formulation). Maintain adequate hydration, low carbohydrate diet recommended. Follow-up with your primary care physician within 1 week. Obtain referral for neurologist outpatient. Recommend O/P Sleep Study and Holter monitoring. Return to the emergency department if your symptoms worsen. Prescriptions/Referrals Prescriptions/Med Rec: New levothyroxine 75 mcg capsule 75 mcg PO QDAY 30 Days Qty: 30 2RF aspirin 81 mg capsule 81 mg PO QDAY Qty: 30 3RF Continued bimatoprost [Latisse] 0.03 % drops with applicator 1 applic topical QDAY 30 Days Qty: 5 5RF hydroquinone 4 % cream 1 applic topical BID 30 Days Qty: 28.4 4RF tretinoin [Retin-A] 0.05 % cream 1 applic topical QHS 30 Days Qty: 45 6RF (DME) Dexcom G7 Sensor Device See Rx Instructions .Route Qty: 1 5RF Rx Instructions: dispense 1 month supply metformin 1,000 mg tablet 1,000 mg PO BID Trulicity 3 mg/0.5 mL pen injector 4.5 mg subcut QWEEK montelukast 10 mg tablet 10 mg PO QDAY fenofibrate micronized 200 mg capsule 200 mg PO QDAY cetirizine [All Day Allergy (cetirizine)] 10 mg tablet 10 mg PO QDAY PRN (Reason: allergy symptoms) simvastatin 40 mg tablet 40 mg PO DAILY omega-3 acid ethyl esters [Lovaza] 1 gram capsule 1 cap PO BID cholecalciferol (vitamin D3) 125 mcg (5,000 unit) capsule 125 mcg PO QDAY ascorbic acid (vitamin C) [C-1000] 1,000 mg tablet 1,000 mg PO QDAY [id number]-Ca carb-vit K 18 mg iron-400 mcg-500 mg tablet 1 tab PO HS Discontinued levothyroxine 100 mcg capsule 100 mcg PO QDAY estradiol 0.025 mg/24 hr patch weekly 0.025 mg TOPICAL .weekly Patient Comments: APPLY 1 PATCH TOPICALLY TO SKIN ONCE A WEEK Referrals: Hoang (PCP),MD Jaime [Primary Care Provider, Family Practice] Patient/Caregiver Discharge Instructions Discharge Activity: activity as tolerated Education Materials: Thyroid-Stimulating Hormone, Free T4, Self-Care for Headaches, Headache Migraine Stages Tx, Headache Migraine Triggers Prevent, ED Hyperthyroidism, ED Hypothyroidism Print Language: Estonian Stand Alone Forms: [facility] Award Info., Patient Portal Info Letter Discharge Order Discharge Orders: Discharge (Routine); Ordered 12/27/24 Ordered By: Elijah Cruz Quality Discharge Quality Measures VTE prophylaxis Attestestation Attestation I have discussed and was present for the essential components of the discharge history, physical examination, diagnosis, and discharge treatment plan with the resident. I agree with the patient's discharge care as documented by the resident and amended herein by me. Marky Law DO. The patient understood all discharge instructions, all questions were answered satisfactorily. The patient was instructed to return to the Emergency Department is symptoms worsened or persisted. Patient was stable, afebrile, tolerating p.o. intake and ambulatory at time of discharge home. Patient was discharged with aspirin 81 mg daily per neurology recommendations and we did reduce the dose of her levothyroxine due to 75 mcg daily due to hyperthyroid's upon arrival which possibly may have contributed to her headache. She will need close follow-up with her PCP for continued monitoring and dose adjustment. Although this document has been carefully reviewed, there may still be some phonetic and other typographical errors. These errors are purely grammatical du e to imperfections in the software program and should not be construed in any way to compromise the substance of the patient's medical care during this visit.
== END 2024-12-27 17:10 | disposition home or self-care (01) | DRG 103 ==
LOC: SERX 09:39 → SERHOLD 12:51 → S2NX 13:53 → S3NX 12-27 03:05
PROVIDERS: Admitting Provider Student in an Organized Health Care Education/Training Program; Emergency Provider Family Medicine; PCP Family Medicine; Visit Provider Student in an Organized Health Care Education/Training Program
DX: G44.009 Cluster headache syndrome, unspecified, not intractable (principal); R29.810 Facial weakness; E11.9 Type 2 diabetes mellitus without complications; I10 Essential (primary) hypertension; M26.642 Arthritis of left temporomandibular joint; G47.33 Obstructive sleep apnea (adult) (pediatric); Q27.9 Congenital malformation of peripheral vascular system, unspecified; H53.8 Other visual disturbances; E03.9 Hypothyroidism, unspecified; E78.2 Mixed hyperlipidemia; Z79.82 Long term (current) use of aspirin; Z88.2 Allergy status to sulfonamides; Z88.1 Allergy status to other antibiotic agents; Z79.84 Long term (current) use of oral hypoglycemic drugs; Z79.899 Other long term (current) drug therapy
CPT/HCPCS: 36415; 70450; 70496; 70498; 70544; 70551; 80053; 80061; 80307; 80320; 81001; 83036; 83735; 83880; 84100; 84439; 84443; 84481; 84484; 85025; 85610; 85730; 87086; 92610; 96374; 96375; 97161; 99284; A4649; J1100; J1650; J1815; J1885; J2765; J7030; Q9967; A9270; G0480

== ENCOUNTER 2025-01-04 14:57 | Emergency (ER) | payer BC, SELFPAY ==
[2025-01-04 15:58] VITALS: BP 149/86; PULSE 95; RESP 18; TEMP 37.1; O2SAT 96
--- NOTE | 2025-01-04 16:03 | PD.EDHA ---
ED Headache RME/HPI General Chief Complaint: General Adult/Misc Complain Stated Complaint: L SIDE OF HEAD PAIN SINCE SUNDAY Time Seen by Provider: 01/04/25 16:04 Arrival date/time: 01/04/25 14:57 RME / HPI RME / HPI Narrative: See [facility] for Dr. Ziegler's HPI Documentation. Related Data Home Medications ?Medication ?Instructions ?Recorded ?Confirmed cetirizine 10 mg tablet (All Day 10 mg PO QDAY PRN allergy symptoms 09/30/24 12/26/24 Allergy (cetirizine)) cholecalciferol (vitamin D3) 125 125 mcg PO QDAY 09/30/24 12/26/24 mcg (5,000 unit) capsule dulaglutide 3 mg/0.5 mL 4.5 mg subcut QWEEK 09/30/24 12/26/24 subcutaneous pen injector (Trulicity) fenofibrate micronized 200 mg 200 mg PO QDAY 09/30/24 12/26/24 capsule metformin 1,000 mg tablet 1,000 mg PO BID 09/30/24 12/26/24 montelukast 10 mg tablet 10 mg PO QDAY 09/30/24 12/26/24 omega-3 acid ethyl esters 1 gram 1 cap PO BID 09/30/24 12/26/24 capsule (Lovaza) simvastatin 40 mg tablet 40 mg PO DAILY 09/30/24 12/26/24 ascorbic acid (vitamin C) 1,000 mg 1,000 mg PO QDAY 12/26/24 12/26/24 tablet (C-1000) [id number]-FA-Ca carb-vit K 1 tab PO HS 12/26/24 12/26/24 18 mg iron-400 mcg-500 mg tablet Previous Rx's ?Medication ?Instructions ?Recorded blood-glucose sensor (Zones G7 #1 ea 09/30/24 Sensor device) bimatoprost 0.03 % drops with 1 applic topical QDAY 30 days #5 mL 11/19/24 applicator, eyelash base (Latisse) hydroquinone 4 % topical cream 1 applic topical BID 30 days #28.4 11/19/24 grams tretinoin 0.05 % topical cream 1 applic topical QHS 30 days #45 11/19/24 (Retin-A) grams aspirin 81 mg capsule 81 mg PO QDAY #30 caps 12/27/24 levothyroxine 75 mcg capsule 75 mcg PO QDAY 1 month #30 caps 12/27/24 lidocaine 5 % topical gel 1 ea topical [id number] PRN pain #113 01/04/25 grams lorazepam 2 mg tablet (Ativan) 2 mg PO .bedtime PRN insomnia #10 01/04/25 tabs Allergies Allergy/AdvReac Type Severity Reaction Status Date / Time cephalexin (From Keflex) Allergy Severe Hives Verified 01/04/25 15:02 Sulfa (Sulfonamide Allergy Severe HIVES Verified 01/04/25 15:02 Antibiotics) Review of Systems Review of Systems Systems Reviewed: All systems reviewed, normal except as documented Past Medical History Past Medical History NEUROLOGIC: Positive Neurological Disorders and Migraine CARDIAC: Positive Cardiac Disorders and Hypercholesterolemia GASTROINTESTINAL: Positive Gastrointestinal Disorders (CHRONIC DIARRHEA AND STOMACH PAIN) REPRODUCTIVE: Positive Previous Pregnancies (2) and Uterine Prolapse ENT: Positive Cataracts (Left eye) ENDOCRINE: Positive Endocrine Disorders, Diabetes Mellitus Type 2 and Hyperthyroidism OTHER HISTORY: Positive Autoimmune Disease, Shingles and Chicken Pox Family History FAMILY HISTORY: Positive Family Cardiac Disorders (HTN, migraine, STROKE, IN, HLD) Surgical History SURGICAL: Positive Eye Surgery (RT CATARACTS), Hysterectomy and Tubal Ligation Social History SMOKING STATUS: Never smoker SECOND HAND EXPOSURE: No SUBSTANCE USE: does not use ED Exam Narrative Physical exam: See [facility] for Dr. Ziegler's HPI Documentation. Course Quality Measures none Vital Signs Vital signs: Vital Signs Temperature 98.8 F 01/04/25 15:58 Pulse Rate 95 01/04/25 15:58 Respiratory Rate 18 01/04/25 15:58 Blood Pressure 149/86 H 01/04/25 15:58 Pulse Oximetry (%) 96 01/04/25 15:58 Oxygen Delivery Method Room Air 01/04/25 15:58 Headache [facility] Narrative [facility] Narrative:: This section includes all my notes and documentations, including HPI, PE, and ED course. Pastor Ziegler MD HPI: 54-year-old female here with severe left-sided headache for the past few days. She reports sharp and stabbing episodes lasting from seconds to about a minute. Uncertain about exacerbating factors or relieving factors. No cough or congestion. No fever or chills. No other complaints. ROS: All negative except as documented in HPI. Physical Exam: General: Alert and oriented. No acute distress. Eyes: Conjunctivae and lids clear. EOMI. PERRL. ENT: No nasal congestion. Pharynx normal. Tympanic membrane normal bilaterally. Neck: Supple. No carotid bruit. No JVD. Lungs: No respiratory distress. Skin: Warm and dry. Neuro: Alert and oriented X 3. Cranial Nerves II-XII grossly intact. No peripheral motor deficits. Made clinical diagnosis of trigeminal neuralgia. Prescribed Ativan and topical lidocaine and recommended outpatient care. Based on my best medical judgment, made decision no further evaluation or treatment indicated at this time. Patient understands and agrees to the discharge instructions customized and printed, see below. Discharge Instructions from Dr. Ziegler: --After evaluation, your symptoms are due to Trigeminal Neuralgia. See attached handout. --There is no life-threatening condition, such as stroke or brain tumor. --Trigeminal neuralgia is a problem with the large nerves that brings feeling to your head/face. It causes sudden, sharp pain on one side of your head.? --Some people can have long periods without the pain, some more frequently. --There are no good medications that help the pain really well. Apply lidocaine pain patches as needed. -- Ativan as needed. --See a private doctor on 01/06/2025 for recheck and further care. Ask for referrals to see specialists (such as Neurologist) to help you. Nerve blocks can help. --Seek immediate medical care with intolerable pain or with any concerns. Pastor Ziegler MD Patient data External records reviewed:: [facility] previous records Clinical information provided by:: family (daughter) Social determinants that could affect healthcare access:: none Patient has the following chronic illnesses:: Migraines, hypercholesterolemia, and hypothyroidism. How is presenting disease/condition affected by chronic disease/condition?: exacerbated by Evaluation data The following diagnostics were reviewed and interpreted by me:: other (specify) (none) Lab and/or radiology exams considered but not ordered:: none Interpretation Summary: n/a Medications / Prescriptions Medications or Prescriptions considered but not ordered:: none Medication administrations:: none Consultations Consultation(s) initiated? (list below): No Diagnosis Differential diagnosis headache: other (Made clinical diagnosis of trigeminal neuralgia) Most likely diagnosis given after review of the tests above:: Trigeminal neuralgia of left side of face Admission Indicated Admission indicated?: not indicated Explain why admission is indicated or not indicated:: With no condition needing emergent intervention, there was no indication for admission. Admission Request Was there a request for admission?: No Disposition Plan Disposition Plan: Discharge Discharge Attestation Discharge Attestation: The patient and all family members were given an opportunity to ask questions and understood the discharge instructions. Discharge instructions specifically effects, indications for sooner follow up or return to the emergency department, and the expected course of current diagnosis. Patient condition: Stable Discharge Plan Plan Patient Disposition: HOME (Self Care) Prescriptions/Referrals Prescriptions/Med Rec: New lorazepam [Ativan] 2 mg tablet 2 mg PO .bedtime PRN (Reason: insomnia) Qty: 10 0RF lidocaine 5 % gel 1 ea topical [id number] PRN (Reason: pain) Qty: 113 1RF No Action bimatoprost [Latisse] 0.03 % drops with applicator 1 applic topical QDAY 30 Days Qty: 5 5RF hydroquinone 4 % cream 1 applic topical BID 30 Days Qty: 28.4 4RF tretinoin [Retin-A] 0.05 % cream 1 applic topical QHS 30 Days Qty: 45 6RF (DME) Dexcom G7 Sensor Device See Rx Instructions .Route Qty: 1 5RF Rx Instructions: dispense 1 month supply metformin 1,000 mg tablet 1,000 mg PO BID Trulicity 3 mg/0.5 mL pen injector 4.5 mg subcut QWEEK montelukast 10 mg tablet 10 mg PO QDAY fenofibrate micronized 200 mg capsule 200 mg PO QDAY cetirizine [All Day Allergy (cetirizine)] 10 mg tablet 10 mg PO QDAY PRN (Reason: allergy symptoms) simvastatin 40 mg tablet 40 mg PO DAILY omega-3 acid ethyl esters [Lovaza] 1 gram capsule 1 cap PO BID cholecalciferol (vitamin D3) 125 mcg (5,000 unit) capsule 125 mcg PO QDAY ascorbic acid (vitamin C) [C-1000] 1,000 mg tablet 1,000 mg PO QDAY [id number]-Ca carb-vit K 18 mg iron-400 mcg-500 mg tablet 1 tab PO HS levothyroxine 75 mcg capsule 75 mcg PO QDAY 30 Days Qty: 30 2RF aspirin 81 mg capsule 81 mg PO QDAY Qty: 30 3RF Problem List Clinical Impression: Trigeminal neuralgia of left side of face Patient/Caregiver Discharge Instructions Discharge Activity: activity as tolerated Education Materials: ED Trigeminal Neuralgia Additional Instructions: Discharge Instructions from Dr. Ziegler: --After evaluation, your symptoms are due to Trigeminal Neuralgia. See attached handout. --There is no life-threatening condition, such as stroke or brain tumor. --Trigeminal neuralgia is a problem with the large nerves that brings feeling to your head/face. It causes sudden, sharp pain on one side of your head.? --Some people can have long periods without the pain, some more frequently. --There are no good medications that help the pain really well. Apply lidocaine pain patches as needed. -- Ativan as needed. --See a private doctor on 01/06/2025 for recheck and further care. Ask for referrals to see specialists (such as Neurologist) to help you. Nerve blocks can help. --Seek immediate medical care with intolerable pain or with any concerns. Print Language: Czech Stand Alone Forms: [facility] Award Info., Patient Portal Info Letter
== END 2025-01-04 16:20 | disposition home or self-care (01) ==
LOC: SERX 16:26
PROVIDERS: Emergency Provider Emergency Medicine
DX: G50.0 Trigeminal neuralgia (principal)
CPT/HCPCS: 99281